=== PATIENT | male | born 1980 ===

== ENCOUNTER → 2018-07-10 20:54 | Outpatient (REF) | payer OTHER, SELFPAY ==
[2018-07-10 21:23] LABS: C-Reactive Protein Quant 0.9 mg/dL (<1.0)
[2018-07-14 08:15] LABS: HLA B27 POSITIVE (Negative)
[2018-07-15 11:35] LABS: ANA Screen NEGATIVE (Negative); DNA Antibody Crithidia IFA NEGATIVE (Negative); Rheumatoid Factor <14 IU/mL; Sjogren Antiboday SS-A <1.0 NEG AI (<1.0 NEGATIVE); Sjogren Antiboday SS-B <1.0 NEG AI (<1.0 NEGATIVE); Sm Antibody <1.0 NEG AI (<1.0 NEGATIVE); Sm/RNP Antibody <1.0 NEG AI (<1.0 NEGATIVE)
== END ==
LOC: LAB 20:54
PROVIDERS: Visit Provider Naturopath
DX: Z74.09 Other reduced mobility (principal); Z13.89 Encounter for screening for other disorder; M25.60 Stiffness of unspecified joint, not elsewhere classified; L40.9 Psoriasis, unspecified
CPT/HCPCS: 86038; 86140; 86430; 86812